=== PATIENT | male | born 1970 | race Caucasian/White ===

== ENCOUNTER 2020-11-25 13:00 | Emergency (ER) | payer BC, SELFPAY ==
[2020-11-25] VITALS (12 sets, daily range): BP systolic 131–150; BP diastolic 88–99; PULSE 66–86; RESP 13–27; TEMP 36.6; O2SAT 94–98; BMI 30.8
--- NOTE | 2020-11-25 13:12 | DI.RAD.S_ITS ---
PROCEDURE: XR CHEST 1V INDICATIONS: chest pain TECHNIQUE: One view of the chest was acquired. COMPARISON: None. FINDINGS: Surgical changes and devices: None. Lungs and pleura: Lungs are clear. No pleural effusions or pneumothorax. Mediastinum: Mediastinal contours appear normal. Heart size is normal. Bones and chest wall: No suspicious bony lesions. Overlying soft tissues appear unremarkable. IMPRESSION: No acute finding. Dictated by: Paramjit Li M.D. on 11/25/2020 at 14:11 Approved by: Paramjit Li M.D. on 11/25/2020 at 14:11
[2020-11-25 13:33] LABS: Add Manual Diff / Slide Review NO; Basophils Absolute Auto 100 /uL (0-100); Basophils Percent Auto 1.1 % (0-2); Eosinophils Absolute Auto 100 /uL (0-450); Eosinophils Percent Auto 1.2 % (2-4); Hematocrit 50.1 % (41-53); Hemoglobin 16.8 g/dL (13.5-17.5); Lymphocytes Absolute Auto 1600 /uL (1100-4500); Lymphocytes Percent Auto 28.4 % (25-40); Mean Corpuscular HGB Conc 33.5 % (30-36); Mean Corpuscular Hemoglobin 28.6 PG (26-34); Mean Corpuscular Volume 85.1 fL (80-100); Monocytes Absolute Auto 500 /uL (0-900); Monocytes Percent Auto 8.1 % (3-14); Neutrophils Absolute Auto 3500 /uL (1500-7000); Neutrophils Percent Auto 61.2 % (50-75); Platelet Count 290 X10^3/uL (150-400); Red Blood Cell Count 5.88 X10^6/uL (4.5-5.9); White Blood Cell Count 5.6 X10^3/uL (4.5-11.0)
[2020-11-25] MEDS: ASPIRIN 81 MG CHEW TAB 324 MG (13:35)
[2020-11-25 13:39] LABS: Alanine Aminotransferase 37 IU/L (<50); Albumin 4.5 g/dL (3.5-5.0); Albumin Globulin Ratio 1.3 (1.0-2.8); Alkaline Phosphatase 82 U/L (38-126); Aspartate Aminotransferase 27 IU/L (17-59); BUN Creatinine Ratio 20.9 (6-22); Blood Urea Nitrogen 19 mg/dL (9-20); Calcium 9.6 mg/dL (8.4-10.2); Carbon Dioxide 31 mmol/L (22-32); Chloride 105 mmol/L (98-107); Creatine Kinase 93 U/L (55-170); Estimated Glomerular Filt Rate > 60.0 mL/min (>60); Globulin 3.6 g/dL (1.7-4.1); Glucose 90 mg/dL (70-100); HEMOLYSIS 15 (0-50); Lipase 131 U/L (23-300); Potassium 4.1 mmol/L (3.4-5.1); Sodium 143 mmol/L (137-145); Total Protein 8.1 g/dL (6.3-8.2)
[2020-11-25 13:50] LABS: Troponin I < 0.012 ng/mL (0.01-0.034)
[2020-11-25 15:52] LABS: Troponin I < 0.012 ng/mL (0.01-0.034)
--- NOTE | 2020-11-25 16:01 | ED_ITS ---
HPI - Chest Pain General Chief Complaint: Chest Pain Stated Complaint: dont feel right chest pain, leg fatigue Time Seen by Provider: 11/25/20 15:07 Source: patient and family Mode of arrival: Ambulatory Limitations: no limitations History of Present Illness HPI narrative: This is a 50-year-old male who comes to the emergency department with complaint on the left side of his chest. Patient states he also had some fatigue in his legs. He states he has had some discomfort on the left side of his chest intermittently it is worse with movement. He does not find it is worse with exertion in particular. Patient states he also noted his legs just felt sort of fatigue. Patient has not had any lightheadedness or passing out. He states that his discomfort goes straight back to his down to the shoulder blade. Patient states he has had a pinched nerve in his back in that region and any time he lifts, thrills or suddenly he can have a Zing of pain down his extremities and can be the left or the right. Patient denies any shortness of breath, he denies any nausea or vomiting. He denies any diaphoresis. He denies any headaches. He does states that movement seen seem to make it worse. 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 Patient denies any past medical history but has not followed with her physician for some time. He does have multiple back and neck surgeries in the past. He is allergic to penicillin. He has not tried any Tylenol ibuprofen. No tobacco, alcohol or illicit he does not take any daily medications. Family history includes cancer for several grandparents. No known hard to talk who is closer to have tachycardia starting in his late 40s but from pulmonary fibrosis and never had any cardiac stents or heart attacks patient is aware. Related Data Allergies Allergy/AdvReac Type Severity Reaction Status Date / Time Penicillins Allergy Intermediate Hives Verified 11/25/20 13:08 Review of Systems Review of Systems ROS Unobtainable: All systems reviewed & are unremarkable except as noted in HPI and below Patient History Social History Smoking Status: Never smoker Smoking Status: Never smoker alcohol intake frequency: a few times a month Substance Use Type: does not use Exam Narrative Exam Narrative: GENERAL: Alert and oriented x three, male in mild distress. HEENT: Head normocephalic, atraumatic, EOMI, pupils reactive, face symmetric, moist mucous membranes NECK: Supple, full range of motion CARDIOVASCULAR: Regular rate and rhythm without murmurs, rubs or gallops. No JVD. Patient does have some reproducible chest pain of the left some sternal border that does radiate to the back when palpated. No rash or skin changes. No fascicular lesions. No bruising or ecchymosis RESPIRATORY: Breath sounds equal bilaterally, no wheezes rales or rhonchi. ABDOMEN: Soft, nontender. Normoactive bowel sounds all 4 quadrants. No guarding or rebound, rigidity, no mass : No CVA tenderness EXTREMITIES: Normal range of motion, no clubbing or edema. Neurovascularly intact NEUROLOGICAL: Cranial nerves II through XII grossly intact. Moving all extremities SKIN: Warm, dry, no petechiae, no rashes or lesions. Initial Vital Signs Initial Vital Signs: Vital Signs Temperature 97.9 F 11/25/20 13:00 Pulse Rate 86 11/25/20 13:00 Respiratory Rate 18 11/25/20 13:00 Blood Pressure 149/99 H 11/25/20 13:00 Pulse Oximetry 98 11/25/20 13:00 Scores HEART Score Heart Score history: Moderately Suspicious Heart Score EKG: Non-Specific repolarization disturbance Heart Score Age: 45-64 years old Heart Score risk factors: No known risk factors Heart Score troponin: < or = to normal limit Heart Score Total: 3 Course Orders Ordered: ED Orders 11/25/20 13:11 EKG-12 Lead Stat 11/25/20 13:12 XR chest 1V Stat 11/25/20 13:18 Complete Blood Count AUTO DIFF Stat Comprehensive Metabolic Panel Stat Lipase Stat Troponin & CK Cardiac Panel Stat 11/25/20 15:15 Troponin I Stat 11/25/20 15:22 EKG-12 Lead Stat Vital Signs Vital signs: Vital Signs - 8 hr 11/25/20 13:26 11/25/20 13:30 11/25/20 14:00 Pulse Rate 74 77 79 Respiratory Rate 13 22 Blood Pressure 150/88 H Pulse Oximetry 97 97 97 11/25/20 14:30 11/25/20 15:00 11/25/20 15:14 Pulse Rate 70 72 71 Respiratory Rate 18 24 22 Blood Pressure 141/88 H Pulse Oximetry 94 97 96 11/25/20 15:30 11/25/20 16:00 11/25/20 16:14 Pulse Rate 66 70 72 Respiratory Rate 20 25 H 27 H Blood Pressure 131/91 H Pulse Oximetry 98 95 94 11/25/20 16:30 11/25/20 17:00 Pulse Rate 66 72 Respiratory Rate 25 H 18 Blood Pressure 138/96 H 147/96 H Pulse Oximetry 96 97 MDM - Chest Pain Lab Data Result diagrams: 11/25/20 13:18 11/25/20 13:18 Labs: Lab Results 11/25/20 11/25/20 11/25/20 Range/Units 13:18 13:18 15:15 WBC 5.6 (4.5-11.0) X10^3/uL RBC 5.88 (4.5-5.9) X10^6/uL Hgb 16.8 (13.5-17.5) g/dL Hct 50.1 (41-53) % MCV 85.1 (80-100) fL MCH 28.6 (26-34) PG MCHC 33.5 (30-36) % RDW 13.0 (11.6-14.8) % Plt Count 290 (150-400) X10^3/uL Neut % (Auto) 61.2 (50-75) % Lymph % (Auto) 28.4 (25-40) % Meade % (Auto) 8.1 (3-14) % Eos % (Auto) 1.2 L (2-4) % Baso % (Auto) 1.1 (0-2) % Neut # (Auto) 3500 (6218-6284) /uL Lymph # (Auto) 1600 (3635-8243) /uL Meade # (Auto) 500 (0-900) /uL Eos # (Auto) 100 (0-450) /uL Baso # (Auto) 100 (0-100) /uL Sodium 143 (137-145) mmol/L Potassium 4.1 (3.4-5.1) mmol/L Chloride 105 (98-107) mmol/L Carbon Dioxide 31 (22-32) mmol/L BUN 19 (9-20) mg/dL Creatinine 0.91 (0.66-1.25) mg/dL Estimated GFR > 60.0 (>60) mL/min BUN/Creatinine Ratio 20.9 (6-22) Glucose 90 (70-100) mg/dL Calcium 9.6 (8.4-10.2) mg/dL Total Bilirubin 1.0 (0.2-1.3) mg/dL AST 27 (17-59) IU/L ALT 37 (<50) IU/L Alkaline Phosphatase 82 (38-126) U/L Total Creatine Kinase 93 (55-170) U/L CK-MB (CK-2) TNP CK-MB (CK-2) Rel Index TNP Troponin I < 0.012 < 0.012 (0.01-0.034) ng/mL Total Protein 8.1 (6.3-8.2) g/dL Albumin 4.5 (3.5-5.0) g/dL Globulin 3.6 (1.7-4.1) g/dL Albumin/Globulin Ratio 1.3 (1.0-2.8) Lipase 131 (23-300) U/L Imaging Data Chest x-ray: Radiologist's Impression: [address] [id number] ReportSigned Patient: Teodoro Juan WMR#: [id number]: 1970Acct:[id number]/Sex: 50 / MDate of Service: 11/25/20Loc: EDAccession Number: [id number] Procedure: XR chest 1V Ordering Provider: Ana Lilia Hunt D.O. PROCEDURE: XR CHEST 1V INDICATIONS: chest pain TECHNIQUE: One view of the chest was acquired. COMPARISON: None. FINDINGS: Surgical changes and devices: None. Lungs and pleura: Lungs are clear. No pleural effusions or pneumothorax. Mediastinum: Mediastinal contours appear normal. Heart size is normal. Bones and chest wall: No suspicious bony lesions. Overlying soft tissues sukhdeep ear unremarkable. IMPRESSION: No acute finding. Dictated by: Paramjit Li M.D. on 11/25/2020 at 14:11 Approved by: Paramjit Li M.D. on 11/25/2020 at 14:11 ECG Data Interpretation: Sinus rhythm rate of 70 5p are 148 QRS of 82 and QTC of 457. No acute ST changes or depression appreciated. Nonspecific. Patient has prior 02/19/20 appears similar. EKG 2. Sinus rhythm rate of 60 7p are 166 QRS 88 QTC of 454. No acute ST elevation depression. MDM Narrative Medical decision making narrative: 50-year-old male comes emergency department with complaint of chest pain that is been going on for some time, patient states he came today because he also had some fatigue in his legs and felt less active. Patient has reproducible chest pain, no acute EKGs with negative troponin. His symptoms seem to be more so to with movement not with exertion or unstable angina. He does not have significant family history coronary artery disease. Discussed with patient we did discuss observation and stress testing but he defers. He was encouraged to follow up for risk factor evaluation as he does not have any known medical history but has not seen a doctor in some time. And stress testing. Patient was encouraged to return immediately if he has worsening symptoms low. Patient feels comfortable with this plan. His in the room also feels comfortable with this. He was given referral for primary care as well. Patient was encouraged to return any time for new or worsening symptoms. Discharge Plan Departure Patient Disposition: Home Clinical Impression: Atypical chest pain Instructions: DI for Atypical Chest Pain Activity Restrictions/Additional Instructions: Follow-up with primary care physician for recheck. Call for an appointment. Some options are included below. You can also contact your insurance company they can provide available options. I would recommend you establish with a physician so you can have your labs as well as cholesterol checked and monitored. Please return for new or worsening chest pain, shortness of breath, lightheadedness or passing out, persistent vomiting, sweating or other new or concerning symptoms. Referrals: Lucas Hernandez MD [Physician] -
== END 2020-11-25 17:06 | disposition home or self-care (01) ==
PROVIDERS: Emergency Provider Emergency Medicine
DX: R07.89 Other chest pain (principal); R53.83 Other fatigue
CPT/HCPCS: 36415; 71045; 80053; 82550; 83690; 84484; 85025; 93005; 93010; 99284

== ENCOUNTER 2023-06-02 11:19 | Day surgery (SDC) | payer OTHER, SELFPAY ==
--- NOTE | 2023-06-02 | PATH_ITS ---
[facility] Accession Number: [id number] No. of containers..01 Tissue . 01 Material submitted: . sigmoid colon - SIGMOID POLYP . 01 Diagnosis: Colon, sigmoid, polyp biopsy: Most consistent with benign fibroblastic polyp/perineurioma Negative for dysplasia or malignancy. See comment. -- Comment: There is expansion of the colonic lamina propria with cell proliferation of bland monomorphic ovoid cells with abundant pale eosinophilic cytoplasm. Immunohistochemical stains performed with appropriate controls show: These cells are negative for S100, DOG1, SMA, and BEBETO. 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 Dr. Humphrey reviewed this case and agreed with the above diagnosis. Technical Note: The immunohistochemical stains reported were performed at [facility] ([address], [facility] [address]). They were developed and their performance characteristics determined by [facility]. They have not been cleared or approved by the U.S. Food and Drug Administration, although such approval is not required for analyte-specific reagents of this type. TXN 06/07/2023 1213 Local . 01 Electronically signed: . Mare Glynn MD, Pathologist NPI- [id number] . 01 Gross description: . SIGMOID POLYP: Received in formalin is 2 fragment(s) of randle, soft tissue measuring 0.6 x 0.5 x 0.2 cm to 0.5 x 0.5 x 0.2 cm submitted entirely in 1 cassette(s) /AAY 06/04/2023 0651 Local . 01 Pathologist provided ICD-10: Z12.11 . 01 CPT . 331209, H05119, N41585 Specimen Comment: A courtesy copy of this report has been sent to [phone] Performed at: 01 [facility] [address], [place], [place] [id number] MD Vaughn Galloway MD Phone: [phone]
[2023-06-02 13:03] VITALS: BP 135/76; PULSE 92; RESP 16; TEMP 36.8; O2SAT 96
--- NOTE | 2023-06-02 13:38 | P.HP_ITS ---
History of Present Illness History of Present Illness Date Patient Seen: 06/02/23 Time Patient Seen: 13:38 Chief complaint: Screening Colonoscopy Narrative: Teodoro is a 53-year-old man who presented to me in April with rectal bleeding and pain. We diagnosed started to empirically treat him for fissure with a topical vaso dilator and a high-fiber diet which has helped significantly. He is now here for his colonoscopy as he has never had one. [facility] Medical History (Updated 04/18/23 @ 11:48 by Dez Ryder MD) Left hip pain Anxiety BPH (benign prostatic hyperplasia) Elevated blood pressure reading Social History Smoking Status: Never smoker alcohol intake: current Meds Home Medications and Allergies Home Medications Medication Instructions Recorded Confirmed Type naproxen sodium 220 mg tablet 220 mg PO BID PRN Pain (Scale 06/02/23 06/02/23 History (Aleve) Score 4-6) Allergies Allergy/AdvReac Type Severity Reaction Status Date / Time Penicillins Allergy Intermediate Hives Verified 06/02/23 12:42 Exam Vital Signs (past 8 hours): - 06/02/23 13:03 Temperature 98.2 F Pulse Rate 92 H Respiratory Rate 16 Blood Pressure 135/76 Pulse Oximetry 96 Oxygen Delivery Method Room Air Oxygen Delivery Method Room Air Const General: healthy appearing and No acute distress Assessment & Plan Assessment and plan (1) Rectal bleeding: Status: Acute Plan We discussed the risks and benefits of colonoscopy and he would like to proceed.
[2023-06-02 14:14] VITALS: BP 116/65; PULSE 92; RESP 19; TEMP 36.4; O2SAT 95
--- NOTE | 2023-06-02 14:14 | PM.OP.COLON ---
Operative Date/Time/Diagnoses Date of procedure: 06/02/23 Time of procedure: 14:14 Pre-op diagnosis: Rectal bleeding Post-op diagnosis: same Procedure & Clinicians Study performed: Colonoscopy Same procedure as scheduled: Yes Surgeon: Dez Ryder Procedure Notes Procedure in detail: Surgeon: Dez Ryder MD Anesthesia: Marielle Massey CRNA Procedure: The patient was brought to the endoscopy suite, placed in left lateral decubitus position. The patient was connected to monitoring devices. A time-out was performed. Sedation was administered. Once the patient was adequately sedated, a digital rectal exam was performed and was normal. The scope was then inserted and advanced to the cecum where the appendiceal orifice was identified and photographed. The scope was then slowly withdrawn over greater than 6 minutes. The mucosa was thoroughly inspected. There was a 1 cm polyp in the sigmoid colon removed with a cold snare. The scope was retroflexed in the rectum. There did appear to be a hypertrophied anal papilla. No other abnormalities were seen. The scope was straightened and removed. A preoperative posterior fissure was seen on withdrawal. The patient was awakened and brought to recovery. Scope withdrawal time: 13 minutes Sedation time: 18 minutes EBL: 1 mL Findings: 1 cm sigmoid polyp and likely posterior anal fissure Post-procedure Disposition: PACU
[2023-06-02 14:17] VITALS: BP 102/78; PULSE 93; RESP 18; O2SAT 97
[2023-06-02 14:22] VITALS: BP 141/73; PULSE 99; RESP 14; TEMP 36.6; O2SAT 96
[2023-06-02 14:27] VITALS: BP 138/84; PULSE 90; RESP 12; TEMP 36.6; O2SAT 96
== END 2023-06-02 14:38 | disposition home or self-care (01) ==
PROVIDERS: PCP Nurse Practitioner Family; Referring Provider Surgery; Visit Provider Surgery
PROC: 0DJD8ZZ Inspection of Lower Intestinal Tract, Via Natural or Artificial Opening Endoscopic (ICD-10-PCS; CPT 45378; principal; 2023-06-02 12:45)
DX: K62.5 Hemorrhage of anus and rectum (principal); K63.5 Polyp of colon
CPT/HCPCS: 45385; J2704

== ENCOUNTER → 2024-06-08 16:55 | Outpatient (CLI) | payer OTHER, SELFPAY ==
--- NOTE | 2024-06-08 17:21 | DI.MRI.S_ITS ---
PROCEDURE: MR CERVICAL SPINE WO CON INDICATIONS: CERVICAL SPONDYLOSIS,RADICULOPATHY,DDD. TECHNIQUE: Noncontrast sagittal T1 spin echo and T2 fast spin echo, sagittal STIR, foraminal oblique sagittal T2 fast spin echo, and axial gradient echo or T2 fast spin echo through the cervical spine. COMPARISON: [facility], CT, CT CERVICAL SPINE WITHOUT CONTRAST, 08/31/2021, 21:08. [facility], MR, C-SPINE WITHOUT CONTRAST, 09/24/2014, 18:07. FINDINGS: Image quality: Diagnostic Alignment and Curvature: There is minimal retrolisthesis seen at the C5-C6 level. Bone Marrow: Marrow demonstrates normal overall signal. Spinal Cord: Visualized spinal cord has normal size and signal. No cerebellar tonsillar herniation. Paraspinous Soft Tissues: No paravertebral masses. Prevertebral soft tissues are normal in thickness. C2-C3: Normal appearance. C3-C4: The disc height is well-preserved. Loss of disc signal is seen at this level. A mild degree of generalized disc osteophyte complex is seen. There is [id number] right-sided and at least moderate left-sided facet hypertrophy. There is moderate to severe left-sided and moderate right-sided neural foraminal narrowing. Minimal central canal narrowing is seen. These imaging findings have progressed compared to the prior study. C4-C5: The disc height is well-preserved. Loss of disc signal is seen at this level. Mild to moderate disc osteophyte complex is seen. Moderate facet joint hypertrophy is seen. At least moderate bilateral neural foraminal narrowing can be seen. Minimal central canal narrowing is seen. These imaging findings have progressed compared to the prior study. C5-C6: There is at least moderate loss of disc height and disc signal seen. Reactive marrow endplate changes are seen which are hypointense on T1-weighted imaging and hyperintense on T2 weighted imaging, which is most consistent with edema (Modic type I changes). At least moderate disc osteophyte complex is seen, with a central disc osteophyte protrusion. Uncovertebral joint hypertrophy is seen at this level. At least moderate facet hypertrophy is seen. There is moderate to severe bilateral neural foraminal narrowing seen. At least moderate central canal narrowing is seen, with associated mass effect upon the ventral spinal cord. These imaging findings are worse than in 2015. C6-C7: Moderate loss of disc height is seen. Loss of disc signal is seen. Moderate generalized disc osteophyte complex is seen. There is mild right-sided and at least moderate left-sided facet hypertrophy. There is moderate to severe bilateral neural foraminal narrowing seen. Mild to moderate central canal narrowing is seen. These degenerative changes are mildly worse than in 2015. C7-T1: Normal appearance. IMPRESSION: Multiple levels of cervical spine degenerative change can be seen, which are worst at the C5-C6 level. The degenerative changes are progressed compared to 2015. Dictated by: Emiliano Nicole M.D. on 06/11/2024 at 16:04 Approved by: Emiliano Nicole M.D. on 06/11/2024 at 16:09
== END ==
PROVIDERS: PCP Nurse Practitioner Family; Referring Provider Physician Assistant Surgical; Visit Provider Physician Assistant Surgical
DX: M47.812 Spondylosis without myelopathy or radiculopathy, cervical region (principal); M54.12 Radiculopathy, cervical region; M50.30 Other cervical disc degeneration, unspecified cervical region; Z98.890 Other specified postprocedural states
CPT/HCPCS: 72141